=== PATIENT | male | born 1995 | race American Indian/Alaskan Native ===

== ENCOUNTER 2017-12-18 12:44 | Emergency (ER) | payer BC ==
[2017-12-18 13:00] VITALS: BMI 29.0
--- NOTE | 2017-12-18 13:36 | ED PDOC ---
Arrival/HPI - General Chief Complaint: Fever Time Seen by Provider: 12/18/17 13:36 Historian: Patient - History of Present Illness Narrative History of Present Illness (Text): 12/18/17 13:36 This 22 yo male with pmh anxiety, presents to this ED c/o feeling fatigue, with fever x 2 weeks. Patient stated he has been taking care of a stray cat that wonders the neighborhood for a while. He says he may been expose to Rabies, although he does not recall a bite or scratch. Patient is requesting Rabies shot. Time/Duration: Other (see hpi) Context: Home Past Medical History - Provider Review Nursing Documentation Reviewed: Yes - Infectious Disease Hx of Infectious Diseases: None - Psychiatric Hx Anxiety: Yes Hx Substance Use: No - Surgical History Other/Comment: nose - Anesthesia Hx Anesthesia: Yes Hx Anesthesia Reactions: No Hx Malignant Hyperthermia: No Family/Social History - Physician Review Nursing Documentation Reviewed: Yes Family/Social History: Other (noncontributory) Smoking Status: Never Smoked Hx Alcohol Use: No Hx Substance Use: No Allergies/Home Meds Allergies/Adverse Reactions: Allergies No Known Allergies Allergy (Verified 12/18/17 13:00) Home Medications: Home Meds Medication Instructions Recorded Confirmed Citalopram Hydrobromide [Celexa] 40 mg PO DAILY 12/18/17 12/18/17 Review of Systems - Review of Systems Constitutional: Normal. absent: Fatigue, Weight Change, Fevers, Night Sweats Eyes: Normal ENT: Normal Respiratory: Normal Cardiovascular: Normal Gastrointestinal: Normal Genitourinary Male: Normal Musculoskeletal: Normal Skin: Normal Neurological: Normal Endocrine: Normal Hemo/Lymphatic: Normal Psychiatric: Normal Physical Exam Vital Signs Temp Pulse Resp BP Pulse Ox 12/18/17 15:26 98.4 F 72 16 129/86 98 12/18/17 15:24 98.4 F 72 16 129/86 98 12/18/17 13:03 98.8 F 73 18 148/99 H 99 Temperature: Afebrile Blood Pressure: Normal Pulse: Regular Respiratory Rate: Normal Appearance: Positive for: Well-Appearing, Non-Toxic, Comfortable Pain Distress: None Mental Status: Positive for: Alert and Oriented X 3 - Systems Exam Head: Present: Atraumatic, Normocephalic Pupils: Present: PERRL Extroacular Muscles: Present: EOMI Conjunctiva: Present: Normal Mouth: Present: Moist Mucous Membranes Neck: Present: Normal Range of Motion Respiratory/Chest: Present: Clear to Auscultation, Good Air Exchange. No: Respiratory Distress, Accessory Muscle Use Cardiovascular: Present: Regular Rate and Rhythm, Normal S1, S2. No: Murmurs Abdomen: No: Tenderness, Distention, Peritoneal Signs Back: Present: Normal Inspection Upper Extremity: Present: Normal Inspection. No: Cyanosis, Edema Lower Extremity: Present: Normal Inspection. No: Edema Neurological: Present: GCS=15, CN II-XII Intact, Speech Normal Skin: Present: Warm, Dry, Normal Color. No: Rashes Psychiatric: Present: Alert, Oriented x 3, Normal Insight, Normal Concentration Medical Decision Making ED Course and Treatment: 12/18/17 15:52 Re-evaluation. Patient feels better. Discussed results and plan with patient who expresses understanding. All questions answered and there is agreement with the plan to discharge home with instructions. Patient stable for discharge. Return if symptoms persist or worsen. Re-evaluation Time: 15:52 Reassessment Condition: Re-examined, Improved - Lab Interpretations Lab Results: 12/18/17 14:10 12/18/17 14:10 Lab Results 12/18/17 14:10: Sodium 142, Potassium 4.2, Chloride 102, Carbon Dioxide 27, Anion Gap 17, BUN 10, Creatinine 1.2, Est GFR ( Amer) > 60, Est GFR (Non- Af Amer) > 60, Random Glucose 96, Calcium 10.0, Total Bilirubin 1.5 H, AST 47, ALT 77 H, Alkaline Phosphatase 75, Total Protein 8.6 H, Albumin 4.9 H, Globulin 3.7, Albumin/Globulin Ratio 1.3 12/18/17 14:10: WBC 5.5, RBC 6.50 H, Hgb 17.2, Hct 49.5, MCV 76.2 L, MCH 26.5, MCHC 34.7, RDW 15.3 H, Plt Count 281, MPV 8.8, Gran % 62.0, Lymph % (Auto) 30.9 , [place] % (Auto) 6.7 H, Eos % (Auto) 0.2 L, Baso % (Auto) 0.2, Gran # 3.41, Lymph # (Auto) 1.7, [place] # (Auto) 0.4, Eos # (Auto) 0.0, Baso # (Auto) 0.01 - Medication Orders Current Medication Orders: Discontinued Medications Rabies Immune Globulin (Imogam) 2,000 intlu IM .ONCE ONE Stop: 12/18/17 14:08 Last Admin: 12/18/17 14:47 Dose: 2,000 intlu IM Administration Charges Document 12/18/17 14:47 SRE (Rec: 12/18/17 14:48 SRE [id number]) Injection Site MAR Injection Site Left Deltoid Charges for Administration # of IM Administrations 1 Immunization Registry Document 12/18/17 14:47 SRE (Rec: 12/18/17 14:48 SRE [id number]) Immunization Registry Consent Date 12/18/17 Rabies Vaccine Human Diploid Cell (Imovax Rabies) 2.5 units IM .ONCE ONE Stop: 12/18/17 14:08 Last Admin: 12/18/17 14:48 Dose: 2.5 units MAR Immunization Data Document 12/18/17 14:48 SRE (Rec: 12/18/17 14:49 SRE [id number]) Immunization Data Vaccine Information Sheet Given Yes Immunization Registry Document 12/18/17 14:48 SRE (Rec: 12/18/17 14:49 SRE [id number]) Immunization Registry Consent Date 12/18/17 Disposition/Present on Arrival - Present on Arrival Any Indicators Present on Arrival: No History of DVT/PE: No History of Uncontrolled Diabetes: No Urinary Catheter: No History of Decub. Ulcer: No History Surgical Site Infection Following: None - Disposition Have Diagnosis and Disposition been Completed?: Yes Diagnosis: Rabies exposure Disposition: HOME/ ROUTINE Disposition Time: 15:54 Patient Plan: Discharge Patient Problems: Current Active Problems Problem Status Onset Rabies exposure Acute Condition: IMPROVED Discharge Instructions (ExitCare): Rabies (DC) Additional Instructions: Call private doctor for follow up visit. You will need further injection for rabies on the following dates: December 21, December 25, and January 01 in the emergency department. Forms: [employer] (Yakut)
[2017-12-18] MEDS ORDERED: Rabies Immune Globulin 150 INTLU/ML VIAL IM ONE (14:07)
[2017-12-18 14:24] LABS: BASO # 0.01 K/mm3 (0.0-2.0); BASO % 0.2 % (0.0-3.0); EOS % 0.2 % (1.5-5.0); GRAN # 3.41 (1.4-6.5); HEMOGLOBIN 17.2 g/dL (14.0-18.0); LYMPH # 1.7 (1.2-3.4); LYMPH % 30.9 % (22.0-35.0); MEAN CELL VOLUME 76.2 fl (80.0-105.0); MEAN CORPUSCULAR HEMOGLOBIN 26.5 pg (25.0-35.0); MEAN CORPUSCULAR HGB CONC 34.7 g/dl (31.0-37.0); MEAN PLATELET VOLUME 8.8 fl (7.0-11.0); MONO # 0.4 (0.1-0.6); MONO % 6.7 % (1.0-6.0); RBC 6.5 10^6/uL (3.5-6.1); RED CELL DISTRIBUTION WIDTH 15.3 % (11.5-14.5); WHITE BLOOD COUNT 5.5 10^3/ul (4.5-11.0)
[2017-12-18 14:33] LABS: ALB/GLOB RATIO 1.3 (1.1-1.8); ALBUMIN 4.9 g/dL (3.0-4.8); ALT/SGPT 77 U/L (7-56); AST/SGOT 47 U/L (17-59); BLOOD UREA NITROGEN 10 mg/dL (7-21); GFR AFRICAN-AMERICAN > 60; GFR NON-AFRICAN AMERICAN > 60
[2017-12-18 15:26] VITALS: BP 129/86; PULSE 72; RESP 16; TEMP 98.4; O2SAT 98
== END 2017-12-18 16:06 | disposition home or self-care (01) ==
LOC: ED 12:44
DX: Z20.3 Contact with and (suspected) exposure to rabies (principal)